=== PATIENT | female | born 1980 | race Caucasian/White ===

== ENCOUNTER → 2016-12-20 | Outpatient (CLI) | payer OTHER ==
[~2016-12-20] MED LIST: ALEVE220 M1 PO; ATIVAN1 MG PO; [UNRECOGNIZED DRUG - CODE] IU; [UNRECOGNIZED DRUG - SUPPLY]
[2016-12-20 10:20] VITALS: BP 104/63
[2016-12-20 12:25] VITALS: BP 101/52
== END ==
LOC: AMSURD 10:10
DX: R51 Headache (principal)
CPT/HCPCS: J1885; J2270; J7030

== ENCOUNTER 2022-03-01 19:20 | Emergency (ER) | payer BC ==
[~2022-03-01] VITALS: Ht 160 cm; Wt 70.5 kg
[2022-03-01 21:23] LABS: BASO # 0.02 K/mm3 (0.02-0.10); EOS # 0.22 K/mm3 (0.04-0.40); EOS % 2.2 % (1.0-5.0); HEMATOCRIT 41.4 % (37.0-47.0); HEMOGLOBIN 14.1 g/dL (12.5-16.0); MEAN CELL VOLUME 88 fl (78-100); MEAN CORPUSCULAR HEMOGLOBIN 30 pg (27-31); MEAN CORPUSCULAR HGB CONC 34 g/dL (33-37); MEAN PLATELET VOLUME 11.2 fl (7.4-10.4); MONO # 0.61 K/mm3 (0.20-0.80); NEU # 6.82 K/mm3 (1.40-6.50); PLATELET COUNT 252 K/mm3 (130-400); RED BLOOD COUNT 4.71 M/mm3 (4.10-5.30); RED CELL DISTRIBUTION WIDTH 12.3 % (11.5-14.5); WHITE BLOOD COUNT 10.2 K/mm3 (4.8-10.8)
[2022-03-01 21:34] LABS: ALBUMIN 4.3 g/dL (3.5-5.0)
[2022-03-01 21:35] LABS: CALCIUM 9.6 mg/dL (8.3-10.5)
[2022-03-01 21:38] LABS: TOTAL BILIRUBIN 0.6 mg/dL (0.2-1.2)
[2022-03-01 21:43] LABS: POTASSIUM 4.1 mmol/L (3.5-5.1)
[2022-03-01 22:55] LABS: URINE APPEARANCE CLEAR; URINE COLOR YELLOW
[2022-03-01 22:56] LABS: URINE GLUCOSE NEGATIVE (NEGATIVE); URINE KETONE 1+ (NEGATIVE); URINE LEUKOCYTE ESTERASE NEGATIVE (NEGATIVE); URINE NITRATE NEGATIVE (NEGATIVE); URINE PROTEIN(semi-quant) NEGATIVE (NEGATIVE); URINE UROBILINOGEN NORMAL (NORMAL)
[2022-03-01 22:57] LABS: URINE BLOOD TRACE (NEGATIVE)
[2022-03-01 22:58] LABS: URINE BILIRUBIN NEGATIVE (NEGATIVE)
[2022-03-01 22:59] LABS: URINE WBC 0-1 /hpf (0-3)
[2022-03-02 01:55] VITALS: BP 93/53
== END 2022-03-02 01:55 | disposition short-term general hospital (02) ==
LOC: ED 19:20
PROVIDERS: Nurse Practitioner
DX: K31.1 Adult hypertrophic pyloric stenosis (principal); Z20.822 Contact with and (suspected) exposure to COVID-19; Z28.310 Unvaccinated for COVID-19
CPT/HCPCS: C9113; J2405; J2550; J3010; J7030; Q9967

== ENCOUNTER → 2022-07-09 | Outpatient (CLI) | payer BC | LOC: AMSURD 14:29 | DX: R07.89 Other chest pain (principal); R09.1 Pleurisy ==

== ENCOUNTER → 2023-05-10 | Outpatient (CLI) | payer BC ==
[2023-05-10 13:31] LABS: BASO # 0.01 K/mm3 (0.02-0.10); EOS # 0.13 K/mm3 (0.04-0.40); EOS % 2.3 % (1.0-5.0); HEMATOCRIT 42.2 % (37.0-47.0); HEMOGLOBIN 13.9 g/dL (12.5-16.0); LYMPH# 1.55 K/mm3 (1.50-4.00); MEAN CELL VOLUME 91 fl (78-100); MEAN CORPUSCULAR HEMOGLOBIN 30 pg (27-31); MEAN CORPUSCULAR HGB CONC 33 g/dL (33-37); MEAN PLATELET VOLUME 9.7 fl (7.4-10.4); MONO # 0.53 K/mm3 (0.20-0.80); NEU # 3.42 K/mm3 (1.40-6.50); PLATELET COUNT 225 K/mm3 (130-400); RED BLOOD COUNT 4.66 M/mm3 (4.10-5.30); RED CELL DISTRIBUTION WIDTH 12.2 % (11.5-14.5); WHITE BLOOD COUNT 5.7 K/mm3 (4.8-10.8)
== END ==
LOC: LAB 13:13
PROVIDERS: Nurse Practitioner Family
DX: J02.9 Acute pharyngitis, unspecified (principal); R53.83 Other fatigue